=== PATIENT | female | born 2000 | race Caucasian/White ===

== ENCOUNTER 2024-11-04 19:52 | Emergency (ER) | payer SELFPAY ==
[~2024-11-04] VITALS: Ht 162.6 cm; Wt 70.0 kg
[2024-11-04 20:04] VITALS: TEMP 97.9
[2024-11-04 20:16] LABS: APPEARANCE,URINE CLEAR (CLEAR); GLUCOSE, URINE (UA) NEGATIVE (NEGATIVE); LEUKOCYTE ESTERASE ,URINE NEGATIVE (NEGATIVE); NITRATE,URINE NEGATIVE (NEGATIVE); OCCULT BLOOD,URINE MODERATE (NEGATIVE); SPECIFIC GRAVITIY, URINE 1.028 (1.003-1.030)
[2024-11-04 20:36] LABS: SQUAMOUS EPITHELIAL CELL,UR Few /LPF (None Seen)
[2024-11-04 20:58] LABS: PLATELET COUNT (AUTO) 388 K/uL (150-450); RED BLOOD CELL COUNT(AUTO) 4.54 MIL/uL (4.00-5.20); RED CELL DISTRIBUTION WIDTH 15.1 % (11.5-14.5); WHITE BLOOD COUNT (AUTO) 16.3 K/uL (4.5-11.0)
[2024-11-04 21:08] LABS: CALCIUM, TOTAL 9.0 mg/dL (8.8-10.5); CREATININE 0.72 mg/dL (0.60-1.30); GLOMERULAR FILTR. RATE CALC > 60 mL/min (>60); GLUCOSE,RANDOM 97 mg/dL (70-110); SODIUM SERUM 139 mmol/L (136-145); UREA NITROGEN, BLOOD 20 mg/dL (7-18)
[2024-11-04 21:14] LABS: ASPARTATE AMINOTRANSFERASE 15.0 U/L (15-37); TOTAL PROTEIN, SERUM 7.5 g/dL (6.4-8.2)
[2024-11-04 22:24] VITALS: BP 116/71; PULSE 90; RESP 18; O2SAT 98
== END 2024-11-04 23:41 | disposition home or self-care (01) ==
LOC: EMS 19:52
DX: M54.50 Low back pain, unspecified (principal); R31.9 Hematuria, unspecified
CPT/HCPCS: 80048; 80076; 81001; 83690; 84703; 85025; 99283